=== PATIENT | female | born 1955 ===

== ENCOUNTER 2016-11-03 10:24 | Observation (INO) | payer OTHER ==
[~2016-11-03] VITALS: Ht 160 cm; Wt 81.4 kg
[2016-11-03] MEDS ORDERED: ASPIRIN 81 MG CHEW PO STA (10:52)
[2016-11-03] MEDS ORDERED: ASPIRIN 81 MG CHEW ONE (10:55)
--- NOTE | 2016-11-03 11:07 | DIAGNOSTIC IMAGING REPORT ---
CHEST ONE VIEW PORTABLE HISTORY: Atypical chest pain. Neck pain. COMPARISON: None. FINDINGS: The lungs are clear. Cardiac silhouette is normal in size. No pleural effusions. No pneumothorax. IMPRESSION: No acute process. Electronically signed by: Mariusz Schroeder M.D. 11/03/2016 11:05 AM
[2016-11-03 11:12] LABS: BASO % 0.9 %; BASO ABS # 0.04 K/uL (0-0.2); COMPLETE YES; EOS % 2.6 %; HEMATOCRIT 41.9 % (37-47); IG% 0.2 %; LYMPH % 24.1 %; LYMPH ABS # 1.11 K/uL (1.2-3.4); MEAN CELL VOLUME 92.7 fL (80-100); MEAN CORPUSCULAR HEMOGLOBIN 31.9 pg (25-34); MEAN CORPUSCULAR HGB CONC 34.4 g/dl (32-36); MEAN PLATELET VOLUME 10.3 fL (7.4-10.4); NEUT % 62.2 %; PLATELET COUNT 191 K/uL (130-400); RED BLOOD COUNT 4.52 M/uL (4.2-5.4)
[2016-11-03 11:20] LABS: PROTHROMBIN TIME (PATIENT) 11.2 SECONDS (9.0-12.0)
--- NOTE | 2016-11-03 11:28 | EMERGENCY ROOM VISIT NOTE ---
History Report prepared by Keven: Lauren Shafer Under the Supervision of: Dr. Devante Pham D.O. First contact with patient: 10:33 Chief Complaint: CARDIAC ASSESSMENT Stated Complaint: PAIN IN NECK Nursing Triage Summary: pain in right side of neck. Also noticing discomfort in heart area that radiates to left arm. Denies cardiac history. History of Present Illness The patient is a 61 year old female who presents to the Emergency Room with complaints of persistent pain to her left chest, with radiation to her left arm , since last evening. Currently, she rates her discomfort as a 1/10, which she states is constant. She denies any worsening or alleviating factors, and she has not yet taken any medications for her symptoms. Patient denies shortness of breath, nausea, vomiting or diaphoresis. She has also been able to exert herself normally without change in symptoms, however, family states that she has been fatiguing easily, and they are worried that she may fall asleep even when driving. Patient denies recent fever, chills, sore throat, cough, abdominal pain, vomiting, diarrhea, hematochezia, melena, urinary symptoms or swelling to her legs. Patient does not right sided neck pain intermittently over the past 6 months which was exacerbated 3 days prior, but none currently. Patient does note prior history of EKG but she has never had a stress test. She has history of hypercholesteremia but denies cardiac history. Source of History: patient Onset: last evening Position: chest (left) Symptom Intensity: 1/10 Timing: constant Modifying Factors (Worsening): other (none) Modifying Factors (Relieving): other (none) Associated Symptoms: No SOB, No abdominal pain, No chills, No diaphoresis, No diarrhea, No fevers, No hematochezia, No melena, No nausea, No urinary symptoms, No vomiting Note: Family notes easy fatigability. Review of Systems See HPI for pertinent positives & negatives. A total of 10 systems reviewed and were otherwise negative. Past Medical & Surgical Medical Problems: (1) Aspirin allergy (2) Chest pain (3) Hypercholesteremia Social History Smoking Status: Never Smoker Marital Status: Housing Status: lives with family Occupation Status: employed Current/Historical Medications No Active Prescriptions or Reported Meds Allergies Coded Allergies: Caffeine (Verified Allergy, Unknown, hives, 11/03/16) Cinnamedrine (Verified Allergy, Unknown, hives, 11/03/16) Uncoded Allergies: acetaminophen (from Midol) (Adverse Reaction, Unknown, hives, 11/03/16) Physical Exam Vital Signs Date Time Temp Pulse Resp B/P Pulse Ox O2 Delivery O2 Flow Rate FiO2 11/03/16 13:29 71 11/03/16 13:10 78 20 136/88 11/03/16 12:55 36.7 77 17 136/88 99 Room Air 11/03/16 11:06 99 Room Air 11/03/16 11:05 71 11/03/16 10:53 100 Room Air 11/03/16 10:33 100 Room Air 11/03/16 10:28 36.7 83 17 145/94 100 Room Air Physical Exam GENERAL: Patient is awake, alert, and in no acute distress. Patient is resting comfortably and showing no signs of anxiety EYES: The conjunctivae are clear. The pupils are round and reactive. EARS, NOSE, MOUTH AND THROAT: The nose is without any evidence of any deformity. Mucous membranes are moist tongue is midline NECK: The neck is nontender and supple. RESPIRATORY: Normal respiratory effort is noted there is no evidence of wheezing rhonchi or rales CARDIOVASCULAR: Regular rate and rhythm noted there no murmurs rubs or gallops normal S1 normal S2 GASTROINTESTINAL: The abdomen is soft. Bowel sounds are present in all quadrants. Abdomen is nontender MUSCULOSKELETAL/EXTREMITIES: There is no evidence of gross deformity full range of motion is noted in the hips and shoulders SKIN: Trace pedal edema, bilaterally. There is no obvious evidence of any rash. There are no petechiae, pallor or cyanosis noted. NEUROLOGIC: Patient is awake alert and oriented x3. Medical Decision & Procedures ER Provider Diagnostic Interpretation: X-ray results as stated below per interpretation by me and the radiologist. CHEST ONE VIEW PORTABLE HISTORY: Atypical chest pain. Neck pain. COMPARISON: None. FINDINGS: The lungs are clear. Cardiac silhouette is normal in size. No pleural effusions. No pneumothorax. IMPRESSION: No acute process. Electronically signed by: Mariusz Schroeder M.D. 11/03/2016 11:05 AM Laboratory Results 11/03/16 11:00 Red Blood Count 4.52, Mean Corpuscular Volume 92.7, Mean Corpuscular Hemoglobin 31.9, Mean Corpuscular Hemoglobin Concent 34.4, Mean Platelet Volume 10.3, Neutrophils (%) (Auto) 62.2, Lymphocytes (%) (Auto) 24.1, Monocytes (%) (Auto) 10.0, Eosinophils (%) (Auto) 2.6, Basophils (%) (Auto) 0.9, Neutrophils # (Auto ) 2.86, Lymphocytes # (Auto) 1.11, Monocytes # (Auto) 0.46, Eosinophils # (Auto ) 0.12, Basophils # (Auto) 0.04 11/03/16 11:00 Test 11/03/16 11:00 White Blood Count 4.60 K/uL (4.8-10.8) Red Blood Count 4.52 M/uL (4.2-5.4) Hemoglobin 14.4 g/dL (12.0-16.0) Hematocrit 41.9 % (37-47) Mean Corpuscular Volume 92.7 fL (80-100) Mean Corpuscular Hemoglobin 31.9 pg (25-34) Mean Corpuscular Hemoglobin Concent 34.4 g/dl (32-36) Platelet Count 191 K/uL (130-400) Mean Platelet Volume 10.3 fL (7.4-10.4) Neutrophils (%) (Auto) 62.2 % Lymphocytes (%) (Auto) 24.1 % Monocytes (%) (Auto) 10.0 % Eosinophils (%) (Auto) 2.6 % Basophils (%) (Auto) 0.9 % Neutrophils # (Auto) 2.86 K/uL (1.4-6.5) Lymphocytes # (Auto) 1.11 K/uL (1.2-3.4) Monocytes # (Auto) 0.46 K/uL (0.11-0.59) Eosinophils # (Auto) 0.12 K/uL (0-0.5) Basophils # (Auto) 0.04 K/uL (0-0.2) RDW Standard Deviation 44.7 fL (36.4-46.3) RDW Coefficient of Variation 13.2 % (11.5-14.5) Immature Granulocyte % (Auto) 0.2 % Immature Granulocyte # (Auto) 0.01 K/uL (0.00-0.02) Prothrombin Time 11.2 SECONDS (9.0-12.0) Prothromb Time International Ratio 1.0 (0.9-1.1) Activated Partial Thromboplast Time 26.6 SECONDS (21.0-31.0) Partial Thromboplastin Ratio 1.0 Anion Gap 9.0 mmol/L (3-11) Est Creatinine Clear Calc Drug Dose 102.0 ml/min Estimated GFR () 115.6 Estimated GFR (Non- 99.8 BUN/Creatinine Ratio 21.3 (10-20) Calcium Level 9.2 mg/dl (8.5-10.1) Total Bilirubin 1.2 mg/dl (0.2-1) Direct Bilirubin 0.2 mg/dl (0-0.2) Aspartate Amino Transf (AST/SGOT) 16 U/L (15-37) Alanine Aminotransferase (ALT/SGPT) 27 U/L (12-78) Alkaline Phosphatase 100 U/L (45-117) Total Creatine Kinase 123 U/L (26-192) Creatine Kinase MB 1.5 ng/ml (0.5-3.6) Creatine Kinase MB Ratio 1.2 (0-3.0) Troponin I < 0.015 ng/ml (0-0.045) Total Protein 7.7 gm/dl (6.4-8.2) Albumin 3.9 gm/dl (3.4-5.0) Lipase 144 U/L (73-393) Laboratory results per my review. Medications Administered Medications (Trade) Dose Ordered Sig/Elliott Route Start Time Stop Time Status Last Admin Dose Admin Aspirin (Aspirin Chew) 324 mg NOW STAT PO 11/03/16 10:52 11/03/16 10:53 DC 11/03/16 10:57 324 MG ECG Indication: chest pain Rate (beats per minute): 69 Rhythm: normal sinus Findings: no acute ischemic change, no ectopy, other (No acute ST segments.) ED Course 1036: The patient was evaluated in room C3. A complete history and physical examination were performed. 1052: Aspirin 324 mg PO and Aspirin 324 mg Route were ordered. 1215: upon reevaluation, the patient was doing well and appeared to be resting more comfortably. I updated her on the results of her radiology reports and lab tests. The hospitalist will be contacted. 1226: After discussion with Dr. Finley, the patient will continue to be evaluated by the [facility] hospitalist for further management. Patient verbalized her understanding and agreement with this treatment plan. Medical Decision Differential diagnosis: Etiologies such as cardiac ischemia, aortic dissection, pulmonary embolism, pneumonia, pneumothorax, musculoskeletal, infections, pericarditis, myocarditis , esophageal rupture, gastrointestinal, as well as others were entertained. Nursing notes reviewed. The patient is a 61-year-old female who presented to the emergency department for an evaluation of chest pain. The patient describes anterior chest pain but also noticed discomfort on the right side of her neck. The pain was not exertional was also not reproducible. I discussed the patient's laboratory radiographic studies with her. I also discussed the limitations of the emergency department workup for chest pain with her. Given her risk factors I discussed her case with the on-call [facility] hospitalist group. They have agreed to evaluate the patient in the emergency department for further management and disposition. Consults Time Called: 1220 Consulting Physician: Dr. Finley - [facility] Returned Call: 1226 Discussed the patient's case. She will continue to be evaluated by the [facility] hospitalist for further management. Impression Primary Impression: Precordial chest pain Scribe Attestation The scribe's documentation has been prepared under my direction and personally reviewed by me in its entirety. I confirm that the note above accurately reflects all work, treatment, procedures, and medical decision making performed by me. Departure Information Dispostion Being Evaluated By Hospitalist ([facility]) Prescriptions No Active Prescriptions or Reported Meds Referrals Cadence Coreas M.D. (PCP)
[2016-11-03 11:42] LABS: ALT/SGPT 27 U/L (12-78); AST/SGOT 16 U/L (15-37); BLOOD UREA NITROGEN 13 mg/dl (7-18); BUN/CREATININE RATIO 21.3 (10-20); CALCIUM 9.2 mg/dl (8.5-10.1); CARBON DIOXIDE 29 mmol/L (21-32); CHLORIDE 105 mmol/L (98-107); GLUCOSE 109 mg/dl (70-99); SODIUM 143 mmol/L (136-145)
[2016-11-03 11:47] LABS: ALKALINE PHOSPHATASE 100 U/L (45-117); CKMB/CK RATIO 1.2 (0-3.0)
[2016-11-03 12:55] VITALS: BP 136/88; PULSE 77; TEMP 36.7; O2SAT 99; BMI 31.8
[2016-11-03] MEDS ORDERED: MAGNESIUM HYDROXIDE SUSP 30 ML UDC PO PRN (13:30)
[2016-11-03] MEDS ORDERED: POLYETHYLENE (MIRALAX) 17 GM PACK PO PRN (13:30)
[2016-11-03] MEDS ORDERED: NITROGLYCERIN 0.4 MG SL PER TAB CHARGE SL PRN (13:30)
[2016-11-03] MEDS ORDERED: ONDANSETRON INJ 2 MG/ML 2 ML VIAL IV PRN (13:30)
[2016-11-03] MEDS ORDERED: ALUMINUM/MAGNESIUM/SIMETH (MAALOX MAX) 30 ML UDC PO PRN (13:30)
--- NOTE | 2016-11-03 13:58 | History and Physical ---
History & Physical Date & Time of Service: Nov 03, 2016 at 13:43 Chief Complaint: Pain In Neck Primary Care Physician: Cadence Coreas M.D. History of Present Illness Source: patient, family, clinic records, hospital records This is a 61 y/o female with a history of hyperlipidemia who presented to the ED on 11/03 with left sided chest pain that began last evening. The patient states that she has felt this chest pain in the past intermittently, but it usually comes and goes very quickly. Last evening, she felt the chest pain for about 3 hours before it started to get better. She describes the pain as a 3/ 10 dull pain in the left side of her chest initially. The pain radiated down her left arm. She denies any other associated symptoms. The patient did not take anything for her pain. This morning, the pain improved on its own to a 1/ 10 dull pain, and her left arm pain resolved. Upon coming to the ED, she received aspirin which completely resolved her pain. She denies any chest or arm pain currently. The patient denies any cardiac history. She does have a history of hyperlipidemia but this is diet controlled and she only takes over the counter herbal supplements. The patient denies fevers, chills, sweats, lightheadedness, syncope, weakness, fatigue, palpitations, claudication, cough, wheezing, shortness of breath, dyspnea on exertion, nausea, vomiting, abdominal pain, dysuria, hematuria, urinary retention, paralysis, weakness, numbness and tingling. Past Medical/Surgical History Hyperlipidemia Family History Diabetes mellitus Hyperlipidemia Hypertension [place] Neuroblastoma Social History Smoking Status: Never Smoker Smokeless Tobacco Use: No Alcohol Use: none Drug Use: none Marital Status: Housing status: lives with significant other Occupational Status: employed (part-time) Allergies Coded Allergies: Caffeine (Verified Allergy, Unknown, hives, 11/03/16) Cinnamedrine (Verified Allergy, Unknown, hives, 11/03/16) Uncoded Allergies: acetaminophen (from Midol) (Adverse Reaction, Unknown, hives, 11/03/16) Home Medications No Active Prescriptions or Reported Meds Review of Systems Constitutional: No chills, No fatigue, No fever, No sweats, No weakness Eyes: No diplopia, No eye pain, No worsening of vision ENT: No hearing loss, No sore throat, No tinnitus Respiratory: No cough, No dyspnea on exertion, No shortness of breath, No wheezing Cardiovascular: No chest pain, No claudication, No palpitations Abdomen: No nausea, No pain, No vomiting Musculoskeletal: No calf pain, No joint pain, No muscle pain Genitourinary - Female: No dysuria, No hematuria, No urinary retention Neurologic: No numbness/tingling, No paralysis, No weakness Integumentary: No color change, No itch, No rash Physical Exam Vital Signs Date Time Temp Pulse Resp B/P Pulse Ox O2 Delivery O2 Flow Rate FiO2 11/03/16 13:29 71 11/03/16 13:10 78 20 136/88 11/03/16 12:55 36.7 77 17 136/88 99 Room Air 11/03/16 11:06 99 Room Air 11/03/16 11:05 71 11/03/16 10:53 100 Room Air 11/03/16 10:33 100 Room Air 11/03/16 10:28 36.7 83 17 145/94 100 Room Air General Appearance: WD/WN, no apparent distress Head: normocephalic, atraumatic Eyes: normal inspection, PERRL, EOMI ENT: normal ENT inspection, hearing grossly normal, pharynx normal Neck: supple, no JVD, trachea midline Respiratory/Chest: lungs clear, normal breath sounds, no respiratory distress Cardiovascular: regular rate, rhythm, no gallop, no murmur Abdomen/GI: normal bowel sounds, non tender, soft Extremities/Musculoskelatal: normal inspection, no calf tenderness, no pedal edema Neurologic/Psych: alert, normal mood/affect, oriented x 3 Skin: normal color, warm/dry, no rash Diagnostics Laboratory Results Results Past 24 Hours Test 11/03/16 11:00 Range/Units White Blood Count 4.60 4.8-10.8 K/uL Red Blood Count 4.52 4.2-5.4 M/uL Hemoglobin 14.4 12.0-16.0 g/dL Hematocrit 41.9 37-47 % Mean Corpuscular Volume 92.7 80-100 fL Mean Corpuscular Hemoglobin 31.9 25-34 pg Mean Corpuscular Hemoglobin Concent 34.4 32-36 g/dl Platelet Count 191 130-400 K/uL Mean Platelet Volume 10.3 7.4-10.4 fL Neutrophils (%) (Auto) 62.2 % Lymphocytes (%) (Auto) 24.1 % Monocytes (%) (Auto) 10.0 % Eosinophils (%) (Auto) 2.6 % Basophils (%) (Auto) 0.9 % Neutrophils # (Auto) 2.86 1.4-6.5 K/uL Lymphocytes # (Auto) 1.11 1.2-3.4 K/uL Monocytes # (Auto) 0.46 0.11-0.59 K/uL Eosinophils # (Auto) 0.12 0-0.5 K/uL Basophils # (Auto) 0.04 0-0.2 K/uL RDW Standard Deviation 44.7 36.4-46.3 fL RDW Coefficient of Variation 13.2 11.5-14.5 % Immature Granulocyte % (Auto) 0.2 % Immature Granulocyte # (Auto) 0.01 0.00-0.02 K/uL Prothrombin Time 11.2 9.0-12.0 SECONDS Prothromb Time International Ratio 1.0 0.9-1.1 Activated Partial Thromboplast Time 26.6 21.0-31.0 SECONDS Partial Thromboplastin Ratio 1.0 Sodium Level 143 136-145 mmol/L Potassium Level 4.0 3.5-5.1 mmol/L Chloride Level 105 98-107 mmol/L Carbon Dioxide Level 29 21-32 mmol/L Anion Gap 9.0 3-11 mmol/L Blood Urea Nitrogen 13 7-18 mg/dl Creatinine 0.60 0.60-1.20 mg/dl Est Creatinine Clear Calc Drug Dose 102.0 ml/min Estimated GFR () 115.6 Estimated GFR (Non- 99.8 BUN/Creatinine Ratio 21.3 10-20 Random Glucose 109 70-99 mg/dl Calcium Level 9.2 8.5-10.1 mg/dl Total Bilirubin 1.2 0.2-1 mg/dl Direct Bilirubin 0.2 0-0.2 mg/dl Aspartate Amino Transf (AST/SGOT) 16 15-37 U/L Alanine Aminotransferase (ALT/SGPT) 27 12-78 U/L Alkaline Phosphatase 100 45-117 U/L Total Creatine Kinase 123 26-192 U/L Creatine Kinase MB 1.5 0.5-3.6 ng/ml Creatine Kinase MB Ratio 1.2 0-3.0 Troponin I < 0.015 0-0.045 ng/ml Total Protein 7.7 6.4-8.2 gm/dl Albumin 3.9 3.4-5.0 gm/dl Lipase 144 73-393 U/L Diagnostic Radiology Reviewed the following studies and agree with interpretation as follows: Patient Name: LEA ANGLIN Unit Number: [id number] Dictated: 11/03/161103 Transcribed: 11/03/161103 [facility] Printed Date/Time: [~ rep prt dt]/[~ rep prt tm] [~ rep ct labl] - [~ rep ct ivnm] [facility] [place] [address] Dictated: 11/03/161103 Transcribed: 11/03/161103 [place] Printed Date/Time: [~ rep prt dt]/[~ rep prt tm] [~ rep ct labl] - [~ rep ct ivnm] Patient: LEA ANGLIN Address1: [address] Rec: [id number] Address2: Acct ID: [id number] [facility] Zip: [place] [address] Date: 1955 Sex: F Room/Bed: Ref Phy: Cadence Coreas M.D. SC: FILI Att Phy: Report #: [id number] Lory Phy: Cadence Coreas M.D. Test: CXR1P Admit Phy: Admissions Director: TOBY Interpreting Phy: Mariusz Schroeder MD Diagnosis: PAIN IN NECK Ordering Phy: Devante Pham D.O. Service Date: 11/03/16 Admit Date: 11/03/16 MNE: [id number] CONF: DICTATED BY: Mariusz Schroeder M.D.]] CC: Devante Pham, Cadence Givens M.D. Endcc: [~ rep ct add3]] CHEST ONE VIEW PORTABLE HISTORY: Atypical chest pain. Neck pain. COMPARISON: None. FINDINGS: The lungs are clear. Cardiac silhouette is normal in size. No pleural effusions. No pneumothorax. IMPRESSION: No acute process. Electronically signed by: Mariusz Schroeder M.D. 11/03/2016 11:05 AM The status of this report is Signed. Draft = Not yet reviewed or approved by Radiologist. Signed = Reviewed and approved by Radiologist. <AttendingPhy></AttendingPhy> <FamilyPhy>Cadence Coreas M.D.</FamilyPhy> < PrimaryPhy>Cadence Coreas M.D.</PrimaryPhy> <UnitNumber>[id number]</ UnitNumber> <VisitNumber>[id number]</VisitNumber> <PatientName>LINNETTELEA</ PatientName> <DateOfBirth>1955</DateOfBirth> <Location>[facility]</Location> < ServiceDate>11/03/16</ServiceDate> <MNE>ESINDI</MNE> <OrderingPhy>Devante Pham D.O.</OrderingPhy> <OrderingPhyMNE>f rep ord dr morales</OrderingPhyMNE> <DictatingPhyMNE>f rep dict dr morales</DictatingPhyMNE> <CCListMNE>f rep ct carmen</ CCListMNE> <AdmittingPhyMNE>f pt admit dr morales</AdmittingPhyMNE> <AttendingPhyMNE >f pt attend dr morales</AttendingPhyMNE> <ConsultingPhyMNE>f pt consult dr morales</ConsultingPhyMNE> <FamilyPhyMNE>f pt fam dr morales</FamilyPhyMNE> <OtherPhyMNE>f pt other dr morales</OtherPhyMNE> < PrimaryPhyMNE>f pt prim care dr morales</PrimaryPhyMNE> <ReferringPhyMNE>f pt referring dr morales</ReferringPhyMNE> EKG Reviewed EKG and agree with interpretation as follows: 69 bpm, NSR Impression Assessment and Plan 61 y/o female with a history of hyperlipidemia who presented to the ED on 11/03 with left sided chest pain that began last evening. 3/10 dull pain that radiated down left arm initially, improved on its own without any medication to 1/10 without radiation, resolved completely with ASA in ED. No other associated symptoms. EKG NSR without ischemic changes. CXR shows no acute disease. First set cardiac enzymes negative. Denies h/o cardiac disease, PMH significant only for diet-controlled HLD. Never had a stress test or echo. -Admitted to telemetry for observation and cardiac monitoring -Trend cardiac enzymes q8h x 2 more sets -NPO after midnight -Exercise stress echo tomorrow morning -Fasting lipid panel tomorrow morning -ASA 81 mg PO q am -Repeat EKG tomorrow am and prn with chest pain HLD--does not take any prescription medications for this -Check lipids as above GI prophylaxis -Maalox Max 15 mL PO q4h prn dyspepsia -Milk of magnesia 30 mL PO q6h prn constipation -Miralax 17 gm PO qd prn constipation -Zofran 4 mg IV q6h prn nausea DVT prophylaxis -Enoxaparin 40 mg SC q24h -JOYCE Sorenson Code Status -Level I, FULL RESUSCITATION STATUS Level of Care Telemetry (observation) Advanced Directives Existing Advance Directive: No Existing Living Will: No Existing Power of Pressed Or Blown Glass Worker: No VTE Prophylaxis VTE Risk Assessment Done? Y/N: Yes Risk Level: Moderate
[2016-11-03 14:04] VITALS: Ht 160 cm; Wt 81.4 kg
[2016-11-03] MEDS ORDERED: IV FLUIDS COMPLETED PRN (15:30)
[2016-11-03 16:00] VITALS: BP 117/77; PULSE 70; TEMP 36.6; O2SAT 96
[2016-11-03 16:15] VITALS: O2SAT 97
[2016-11-03] MEDS ORDERED: ENOXAPARIN 40 MG/0.4 ML SYR SC SCH (18:00)
[2016-11-03 19:29] VITALS: BP 102/66; PULSE 70; TEMP 36.7; O2SAT 97
[2016-11-03 19:56] LABS: CKMB/CK RATIO 0.9 (0-3.0)
[2016-11-04] VITALS: BP 107/70; PULSE 70; TEMP 36.6; O2SAT 94
[2016-11-04 03:17] LABS: HEMATOCRIT 40.7 % (37-47); MEAN CELL VOLUME 93.1 fL (80-100); MEAN CORPUSCULAR HEMOGLOBIN 31.8 pg (25-34); MEAN CORPUSCULAR HGB CONC 34.2 g/dl (32-36); MEAN PLATELET VOLUME 10.4 fL (7.4-10.4); PLATELET COUNT 185 K/uL (130-400); RED BLOOD COUNT 4.37 M/uL (4.2-5.4); WHITE BLOOD COUNT 5.82 K/uL (4.8-10.8)
[2016-11-04 03:55] LABS: BLOOD UREA NITROGEN 16 mg/dl (7-18); BUN/CREATININE RATIO 23.1 (10-20); CALCIUM 8.5 mg/dl (8.5-10.1); CARBON DIOXIDE 28 mmol/L (21-32); CHLORIDE 107 mmol/L (98-107); CREATININE 0.69 mg/dl (0.60-1.20); GLUCOSE 103 mg/dl (70-99); POTASSIUM 4.1 mmol/L (3.5-5.1); SODIUM 143 mmol/L (136-145)
[2016-11-04 04:00] VITALS: BP 109/70; PULSE 67; TEMP 36.5; O2SAT 94
[2016-11-04 04:00] LABS: CHOLESTEROL 296 mg/dl (0-200); HDL CHOLESTEROL 74 mg/dl; LDL CHOLESTEROL CALCULATED 203 mg/dl; TRIGLYCERIDES 97 mg/dl (0-150); VERY LOW DENSITY LIPOPROT CALC 19 mg/dl
[2016-11-04 08:02] VITALS: BP 124/84; PULSE 69; TEMP 36.6; O2SAT 95
[2016-11-04] MEDS ORDERED: ASPIRIN 81 MG ECTAB PO SCH (09:00)
[2016-11-04] MEDS ORDERED: ATORVASTATIN 40 MG TAB PO SCH (09:00)
--- NOTE | 2016-11-04 10:12 | EXERCISE STRESS ECHO ---
*NOTICE TO RECEIVING [employer]Y This information is strictly Confidential and protected under [place] law. [place] law prohibits you from making any further disclosure of this information unless further disclosure is expressly permitted by the written consent of the person to whom it pertains or is authorized by law. A general authorization for the release of medical or other information is not sufficient for this purpose. Hospital accepts no responsibility if the information is made available to any other person, INCLUDING THE PATIENT. Interpretation Summary * Name: LEA ANGLIN Study Date: 11/04/2016 08:17 AM BP: 128/77 mmHg * Patient Location: [facility] HR: 72 * : 1955 (M/d/yyyy) Gender: Female Height: 63 in * Age: 61 yrs Ethnicity: MS Weight: 179 lb * Ordering Physician: Nelli Norwood * Referring Physician: KANDICE * Performed By: Courtney Calix RDCS * * Reason For Study: CHEST PAIN * BSA: 1.8 m2 * History: CHEST PAIN * -- Conclusions -- * 1. Negative exercise stress echo for ischemia at 106% MPHR. * 2. Negative stress ECG for ischemia. * 3. Average functional capacity. Exercised for 5 min, achieving 6.9 METs. No exercise induced chest pain. * 4. Normal resting LV size and function. LVEF 55-60%. Normal RV size and function. No significant valvular abnormalities. Grade I diastolic dysfunction. * 5. No prior studies for comparison. Procedure Details * ECHOEX, CPT #50361 Left Ventricle * The left ventricle is grossly normal size. * There is normal left ventricular wall thickness. * Ejection Fraction = 55-60%. * The left ventricular wall motion is normal at rest. * The left ventricular ejection fraction increases normally with stress. The left ventricular end-systolic cavity size reduces post-stress (normal response). The left ventricular wall motion with stress is normal. Right Ventricle * The right ventricle is grossly normal size. * The right ventricular systolic function is normal. Atria * The left atrial size is normal. * Right atrial size is normal. * No ASD detected; PFO is not assessed. Mitral Valve * The mitral valve is grossly normal. * The mitral valve leaflets appear thickened, but open well. * There is no mitral valve stenosis. * Significant mitral regurgitation is absent. Tricuspid Valve * The tricuspid valve is not well visualized, but is grossly normal. * There is no tricuspid stenosis. * There is trace tricuspid regurgitation. Aortic Valve * The aortic valve opens well. * No hemodynamically significant valvular aortic stenosis. * There is no significant aortic regurgitation. Pulmonic Valve * The pulmonary valve is inadequately visualized, but the Doppler data is adequate for interpretation. * Trace pulmonic valvular regurgitation. Great Vessels * The aortic root and proximal ascending aorta are normal sized. Pericardium * There is no pericardial effusion. Stress Parameters * Normal baseline electrocardiogram. * Stress ECG: No ST changes. No arrhythmias. * No arrhythmia were noted with stress. * Rest heart rate was '72' BPM. * Rest blood pressure was '128/77' * Maximum heart rate achieved was 171 bpm. * Maximum heart rate was 106 % of maximum age-predicted heart rate. * Maximum blood pressure was '192/106' * Total exercise time was '5:00\E\' * Maximum exercise MET level achieved was '6.90' METS * Maximum treadmill speed was '2.50' miles per hour. * Maximum treadmill elevation was '12.00'% grade. * Exercise was terminated due to 'ACHIEVING TARGET HR' Left Ventricular Diastolic Function * Grade I diastolic dysfunction, (abnormal relaxation pattern). MMode 2D Measurements and Calculations IVSd 1.1 cm IVSs 1.4 cm LVIDd 4.4 cm LVIDs 3.0 cm LVPWd 0.80 cm LVPWs 1.6 cm IVS/LVPW 1.4 FS 30.6 % EDV(Teich) 86.5 ml ESV(Teich) 36.0 ml EF(Teich) 58.4 % EDV(cubed) 83.8 ml ESV(cubed) 28.0 ml EF(cubed) 66.6 % % IVS thick 25.2 % % LVPW thick 94.9 % LV mass(C)d 140.5 grams LV mass(C)dI 76.2 grams/m\S\2 LV mass(C)s 159.0 grams LV mass(C)sI 86.2 grams/m\S\2 SV(Teich) 50.5 ml SI(Teich) 27.4 ml/m\S\2 SV(cubed) 55.8 ml SI(cubed) 30.2 ml/m\S\2 Ao root diam 2.9 cm Ao root area 6.5 cm\S\2 LVAd ap4 29.2 cm\S\2 LVLd ap4 8.5 cm EDV(MOD-sp4) 82.2 ml EDV(sp4-el) 85.1 ml LVAs ap4 18.3 cm\S\2 LVLs ap4 7.5 cm ESV(MOD-sp4) 37.5 ml ESV(sp4-el) 37.7 ml EF(MOD-sp4) 54.5 % EF(sp4-el) 55.7 % LVAd ap2 24.9 cm\S\2 LVLd ap2 8.9 cm EDV(MOD-sp2) 56.8 ml EDV(sp2-el) 59.1 ml LVAs ap2 13.6 cm\S\2 LVLs ap2 6.8 cm ESV(MOD-sp2) 22.3 ml ESV(sp2-el) 22.9 ml EF(MOD-sp2) 60.8 % EF(sp2-el) 61.2 % LVLd %diff 4.4 % EDV(MOD-bp) 70.7 ml LVLs %diff -9.96 % ESV(MOD-bp) 28.9 ml EF(MOD-bp) 59.1 % SV(MOD-sp4) 44.8 ml SI(MOD-sp4) 24.3 ml/m\S\2 SV(MOD-sp2) 34.5 ml SI(MOD-sp2) 18.7 ml/m\S\2 SV(MOD-bp) 41.8 ml SI(MOD-bp) 22.7 ml/m\S\2 SV(sp4-el) 47.4 ml SI(sp4-el) 25.7 ml/m\S\2 SV(sp2-el) 36.2 ml SI(sp2-el) 19.6 ml/m\S\2 Doppler Measurements and Calculations MV E max maximino 67.4 cm/sec MV A max maximino 71.8 cm/sec MV E/A 0.94 MV dec time 0.25 sec Ao V2 max 130.3 cm/sec Ao max PG 6.8 mmHg Ao max PG (full) 1.2 mmHg LV V1 max PG 5.6 mmHg LV V1 max 118.7 cm/sec TR max maximino 214.5 cm/sec
[2016-11-04] MEDS ORDERED: ASPEC81 PO (10:55)
[2016-11-04] MEDS ORDERED: LPT40 PO (10:55)
--- NOTE | 2016-11-04 11:13 | Discharge Instructions ---
Discharge Instructions Admission Reason for Admission: Chest Pain Discharge Discharge Diagnosis / Problem: Chest pain, high cholesterol Discharge Goals Goal(s): Decrease discomfort, Improve disease control, Diagnostic testing, Therapeutic intervention Activity Recommendations Activity Limitations: resume your previous activity . Instructions / Follow-Up Instructions / Follow-Up You were admitted to the hospital for overnight observation after presenting to the ER with left sided chest pain. You were worked up to rule out an acute heart attack or ischemic event. You had several EKGs which were all normal and did not show any damage or ischemia (lack of blood supply) to the heart. All 3 sets of your cardiac enzymes, which become elevated when there is heart damage, were also normal. An exercise stress echocardiogram was completed prior to your discharge. This test involves stressing your heart with physical exercise to see if this induces chest pain, heart damage or ischemia, and is followed by an ultrasound of the heart to assess its function. Your stress echo was negative for any ischemia and you did not have any exercise induced chest pain. Your heart is normal in size and function, and there was no significant disease in your heart valves. A fasting cholesterol panel was checked, and that did show that you have an elevated cholesterol. Your bad cholesterol, or LDL, was elevated at 203. The goal is be at least below 100. As a result, a new medication to lower your LDL will be started. The medication is called atorvastatin (Lipitor). Please take atorvastatin 40 mg by mouth every morning. You may experience muscle aches and pains on this medication. If this occurs, please speak to your primary care provider. I also recommend that you start taking a low dose aspirin to help reduce your risk of heart attack and stroke. You may take aspirin 81 mg by mouth every morning. This medication thins your blood and can increase your risk for bruising and bleeding. Please see your primary care provider should excessive bruising/bleeding occur. Please follow up with your primary care provider in 1 week regarding your hospital stay and the addition of new medications. She will be able to follow your cholesterol and ensure that it is improving. Please seek medical attention if you experience worsening chest pain, sweats, numbness or tingling, nausea, vomiting, loss of consciousness, or shortness of breath. Current Hospital Diet Patient's current hospital diet: AHA Diet (Heart Healthy) Discharge Diet Recommended Diet: AHA Diet (Heart Healthy) Procedures Procedures Performed: Stress echocardiogram Pending Studies Studies pending at discharge: no Laboratory Results Lipid Panel Test 11/04/16 03:11 Range/Units Triglycerides Level 97 0-150 mg/dl Cholesterol Level 296 H 0-200 mg/dl HDL Cholesterol 74 mg/dl Cholesterol/HDL Ratio 4.0 LDL Cholesterol, Calculated 203 mg/dl Medical Emergencies . Who to Call and When: Medical Emergencies: If at any time you feel your situation is an emergency, please call 911 immediately. . Non-Emergent Contact Non-Emergency issues call your: Primary Care Provider Call Non-Emergent contact if: your pain is worsening, your pain is concerning you, you have any medication questions . Past History Medical & Surgical History: (1) Precordial chest pain (2) Hypercholesteremia . "Provider Documentation" section prepared by Nelli Norwood. VTE Core Measure Inpt VTE Proph given/why not?: Enoxaparin (Lovenox)SQ, T.E.D. Stockings, SCD's
[2016-11-04 11:26] VITALS: BP 144/86; PULSE 87; TEMP 36.7; O2SAT 96
[2016-11-04 12:06] VITALS: BP 144/86; PULSE 87; TEMP 36.7; O2SAT 96
--- NOTE | 2016-11-04 13:46 | Discharge Summary ---
Discharge Summary Admission Date: Nov 03, 2016 at 13:40 Discharge Date: Nov 04, 2016 Discharge Disposition: Home Principal Diagnosis: Chest pain, hypercholesterolemia Procedures: [address] [place] [address] Performing Location: [facility] Patient Name: LEA ANGLIN Dictating Provider: Tonio Clayton MD Dictation Date: Report Signed By: Date: 1955 Epic Ambulatory Analyst: LILLIE Room/Bed: [facility] Family Physician: Cadence Coreas M.D. SC: C.2T Primary Care Physician: Cadence Coreas M.D. Adm Date: 11/03/16 Attending Physician: Min Boyle MD, PhD Dis Date: Admitting Physician: Min Boyle MD, PhD Ordering Physician: *NOTICE TO RECEIVING [employer]ENCY This information is strictly Confidential and protected under [place] law. [place] law prohibits you from making any further disclosure of this information unless further disclosure is expressly permitted by the written consent of the person to whom it pertains or is authorized by law. A general authorization for the release of medical or other information is not sufficient for this purpose. Hospital accepts no responsibility if the information is made available to any other person, INCLUDING THE PATIENT. Interpretation Summary * Name: LEA ANGLIN Study Date: 11/04/2016 08:17 AM BP: 128/77 mmHg * Patient Location: [facility] HR: 72 * : 1955 (M/d/yyyy) Gender: Female Height: 63 in * Age: 61 yrs Ethnicity: MD Weight: 179 lb * Ordering Physician: Nelli Norwood * Referring Physician: KANDICE * Performed By: Courtney Calix RDCS * * Reason For Study: CHEST PAIN * BSA: 1.8 m2 * History: CHEST PAIN * -- Conclusions -- * 1. Negative exercise stress echo for ischemia at 106% MPHR. * 2. Negative stress ECG for ischemia. * 3. Average functional capacity. Exercised for 5 min, achieving 6.9 METs. No exercise induced chest pain. * 4. Normal resting LV size and function. LVEF 55-60%. Normal RV size and function. No significant valvular abnormalities. Grade I diastolic dysfunction. * 5. No prior studies for comparison. Procedure Details * ECHOEX, CPT #22340 Left Ventricle * The left ventricle is grossly normal size. * There is normal left ventricular wall thickness. * Ejection Fraction = 55-60%. * The left ventricular wall motion is normal at rest. * The left ventricular ejection fraction increases normally with stress. The left ventricular end-systolic cavity size reduces post-stress (normal response). The left ventricular wall motion with stress is normal. Right Ventricle * The right ventricle is grossly normal size. * The right ventricular systolic function is normal. Atria * The left atrial size is normal. * Right atrial size is normal. * No ASD detected; PFO is not assessed. Mitral Valve * The mitral valve is grossly normal. * The mitral valve leaflets appear thickened, but open well. * There is no mitral valve stenosis. * Significant mitral regurgitation is absent. Tricuspid Valve * The tricuspid valve is not well visualized, but is grossly normal. * There is no tricuspid stenosis. * There is trace tricuspid regurgitation. Aortic Valve * The aortic valve opens well. * No hemodynamically significant valvular aortic stenosis. * There is no significant aortic regurgitation. Pulmonic Valve * The pulmonary valve is inadequately visualized, but the Doppler data is adequate for interpretation. * Trace pulmonic valvular regurgitation. Great Vessels * The aortic root and proximal ascending aorta are normal sized. Pericardium * There is no pericardial effusion. Stress Parameters * Normal baseline electrocardiogram. * Stress ECG: No ST changes. No arrhythmias. * No arrhythmia were noted with stress. * Rest heart rate was '72' BPM. * Rest blood pressure was '128/77' * Maximum heart rate achieved was 171 bpm. * Maximum heart rate was 106 % of maximum age-predicted heart rate. * Maximum blood pressure was '192/106' * Total exercise time was '5:00\E\' * Maximum exercise MET level achieved was '6.90' METS * Maximum treadmill speed was '2.50' miles per hour. * Maximum treadmill elevation was '12.00'% grade. * Exercise was terminated due to 'ACHIEVING TARGET HR' Left Ventricular Diastolic Function * Grade I diastolic dysfunction, (abnormal relaxation pattern). MMode 2D Measurements and Calculations IVSd 1.1 cm IVSs 1.4 cm LVIDd 4.4 cm LVIDs 3.0 cm LVPWd 0.80 cm LVPWs 1.6 cm IVS/LVPW 1.4 FS 30.6 % EDV(Teich) 86.5 ml ESV(Teich) 36.0 ml EF(Teich) 58.4 % EDV(cubed) 83.8 ml ESV(cubed) 28.0 ml EF(cubed) 66.6 % % IVS thick 25.2 % % LVPW thick 94.9 % LV mass(C)d 140.5 grams LV mass(C)dI 76.2 grams/m\S\2 LV mass(C)s 159.0 grams LV mass(C)sI 86.2 grams/m\S\2 SV(Teich) 50.5 ml SI(Teich) 27.4 ml/m\S\2 SV(cubed) 55.8 ml SI(cubed) 30.2 ml/m\S\2 Ao root diam 2.9 cm Ao root area 6.5 cm\S\2 LVAd ap4 29.2 cm\S\2 LVLd ap4 8.5 cm EDV(MOD-sp4) 82.2 ml EDV(sp4-el) 85.1 ml LVAs ap4 18.3 cm\S\2 LVLs ap4 7.5 cm ESV(MOD-sp4) 37.5 ml ESV(sp4-el) 37.7 ml EF(MOD-sp4) 54.5 % EF(sp4-el) 55.7 % LVAd ap2 24.9 cm\S\2 LVLd ap2 8.9 cm EDV(MOD-sp2) 56.8 ml EDV(sp2-el) 59.1 ml LVAs ap2 13.6 cm\S\2 LVLs ap2 6.8 cm ESV(MOD-sp2) 22.3 ml ESV(sp2-el) 22.9 ml EF(MOD-sp2) 60.8 % EF(sp2-el) 61.2 % LVLd %diff 4.4 % EDV(MOD-bp) 70.7 ml LVLs %diff -9.96 % ESV(MOD-bp) 28.9 ml EF(MOD-bp) 59.1 % SV(MOD-sp4) 44.8 ml SI(MOD-sp4) 24.3 ml/m\S\2 SV(MOD-sp2) 34.5 ml SI(MOD-sp2) 18.7 ml/m\S\2 SV(MOD-bp) 41.8 ml SI(MOD-bp) 22.7 ml/m\S\2 SV(sp4-el) 47.4 ml SI(sp4-el) 25.7 ml/m\S\2 SV(sp2-el) 36.2 ml SI(sp2-el) 19.6 ml/m\S\2 Doppler Measurements and Calculations MV E max maximino 67.4 cm/sec MV A max maximino 71.8 cm/sec MV E/A 0.94 MV dec time 0.25 sec Ao V2 max 130.3 cm/sec Ao max PG 6.8 mmHg Ao max PG (full) 1.2 mmHg LV V1 max PG 5.6 mmHg LV V1 max 118.7 cm/sec TR max maximino 214.5 cm/sec Medication Reconciliation New Medications: Aspirin (Aspirin EC Low Dose) 81 Mg Ectab 81 MG PO QAM for 30 Days, #30 TABS Take 1 tablet by mouth every morning. Atorvastatin (Atorvastatin Calcium) 40 Mg Tab 40 MG PO QAM for 30 Days, #30 TAB Take 1 tablet by mouth once every morning. Discharge Exam Patient reports feeling well, no events overnight. The patient denies fevers, chills, sweats, chest pain, palpitations, claudication, cough, wheezing, shortness of breath, nausea, vomiting, abdominal pain, dysuria, hematuria, urinary retention, paralysis, weakness, numbness and tingling. Review of Systems: Constitutional: No chills, No fever, No sweats Eyes: No diplopia, No eye pain, No worsening of vision ENT: No hearing loss, No sore throat, No tinnitus Respiratory: No cough, No shortness of breath, No wheezing Cardiovascular: No chest pain, No claudication, No palpitations Abdomen: No nausea, No pain, No vomiting Musculoskeletal: No calf pain, No joint pain, No muscle pain Genitourinary - Female: No dysuria, No hematuria, No urinary retention Neurologic: No numbness/tingling, No paralysis, No weakness Integumentary: No color change, No itch, No rash Physical Exam: General Appearance: WD/WN, no apparent distress Eyes: normal inspection, PERRL, EOMI ENT: normal ENT inspection, hearing grossly normal, pharynx normal Neck: supple, no JVD, trachea midline Respiratory/Chest: lungs clear, normal breath sounds, no respiratory distress Cardiovascular: regular rate, rhythm, no gallop, no murmur Abdomen / GI: normal bowel sounds, non tender, soft Extremities: normal inspection, no calf tenderness, no pedal edema Neurologic/Psychiatric: alert, normal mood/affect, oriented x 3 Skin: normal color, warm/dry, no rash Hospital Course 61 y/o female with a history of hyperlipidemia who presented to the ED on 11/03 with left sided chest pain that began last evening. 3/10 dull pain that radiated down left arm initially, improved on its own without any medication to 1/10 without radiation, resolved completely with ASA in ED. No other associated symptoms. EKG NSR without ischemic changes. CXR shows no acute disease. First set cardiac enzymes negative. Denies h/o cardiac disease, PMH significant only for diet-controlled HLD. Never had a stress test or echo. -Admitted to telemetry for observation and cardiac monitoring -Trend cardiac enzymes q8h x 2 more sets. All 3 sets negative. -NPO after midnight -Exercise stress echo: negative for ischemia, no exercise induced chest pain. Normal LV size and function. LVEF 55-60%. Normal RV size and function. No significant valvular abnormalities. -Fasting lipid panel: total cholesterol 296, LDL 203, HDL 74 -ASA 81 mg PO q am, continue as outpatient -Repeat EKG 69 bpm, NSR HLD--did not take any prescription medications for this prior to arrival -Initiate atorvastatin 40 mg PO qam due to elevated LDL GI prophylaxis -Maalox Max 15 mL PO q4h prn dyspepsia -Milk of magnesia 30 mL PO q6h prn constipation -Miralax 17 gm PO qd prn constipation -Zofran 4 mg IV q6h prn nausea DVT prophylaxis -Enoxaparin 40 mg SC q24h -JOYCE pavon and Eri Code Status -Level I, FULL RESUSCITATION STATUS Total Time Spent: Greater than 30 minutes This includes examination of the patient, discharge planning, medication reconciliation, and communication with other providers. Discharge Instructions Please refer to the electronic Patient Visit Report (Discharge Instructions) for additional information.
== END 2016-11-04 12:29 | disposition home or self-care (01) ==
LOC: ENRESERVDT → ENRESERVTM → C.EDB 10:27 → C.2T 13:40
PROVIDERS: ADMIT Hospitalist; ATTEND Hospitalist
DX: R07.9 Chest pain, unspecified (principal); E78.00 Pure hypercholesterolemia, unspecified; E78.5 Hyperlipidemia, unspecified; Z83.3 Family history of diabetes mellitus; Z82.49 Family history of ischemic heart disease and other diseases of the circulatory system